=== PATIENT | female | born 1950 | race Two or more races ===

== ENCOUNTER 2019-01-18 14:05 | Emergency (ER) | payer OTHER ==
[~2019-01-18] VITALS: Ht 162.6 cm; Wt 74.8 kg
[2019-01-18 14:15] VITALS: Ht 162.6 cm; Wt 74.8 kg
[2019-01-18] MEDS ORDERED: ATOR10TA65 PO (15:37)
[2019-01-18] MEDS ORDERED: METF-849 PO (15:37)
[2019-01-18] MEDS ORDERED: LOSA50TA14 PO (15:37)
[2019-01-18 15:56] VITALS: BP 175/77; PULSE 97; RESP 16
--- NOTE | 2019-01-18 18:31 | ERD ---
ER Documentation Chief Complaint Chief Complaint medication refill HPI This is a 68-year-old woman with history of hypertension brought in by her son for medication refill, she has not used her medications including losartan x1 month. She denies headache or blurry vision, no chest pain or shortness of breath, no paresis or paresthesias no difficulty ambulating. ROS All systems reviewed and are negative except as per history of present illness. Medications Home Meds Active Scripts Metformin* (Glucophage*) 500 Mg Tab, 500 MG PO BID, #60 TAB Prov:TOM SMALL MD 01/18/19 Atorvastatin Calcium (Atorvastatin Calcium) 10 Mg Tablet, 10 MG PO DAILY, #30 TAB Prov:TOM SMALL MD 01/18/19 Losartan Potassium* (Losartan Potassium*) 50 Mg Tablet, 50 MG PO DAILY, #30 TAB Prov:TOM SMALL MD 01/18/19 Allergies Allergies: Coded Allergies: No Known Allergy (Unverified , 01/18/19) PMhx/Soc Hypertension, hypercholesterolemia Hx Alcohol Use: No Hx Substance Use: No Hx Tobacco Use: No FmHx Family History: No diabetes Physical Exam Vitals Vital Signs Date Temp Pulse Resp B/P (MAP) Pulse Ox O2 O2 Flow FiO2 Time Delivery Rate 01/18/19 98.3 97 16 175/77 97 Room Air 15:56 (109) 01/18/19 98.5 105 18 165/78 98 14:15 (107) Physical Exam GENERAL: Well-developed, well-nourished, well-hydrated, in no apparent distress, looks nontoxic in appearance HEENT: Moist mucous membranes, pink conjunctiva, no cervical spine tenderness or step-off deformities, no goiter, no jaundice or icterus, extraocular movements intact without pain. No submandibular induration, and no pharyngeal erythema NEURO: Alert and oriented 3, mild resting tremor to the hands bilaterally, cranial nerves II through XII intact bilaterally, pupils equal round reactive to light, no focal deficits or facial asymmetry CARDIAC: Regular rate and rhythm, no murmurs rubs or gallops LUNGS: Clear bilaterally no wheezing crackles or stridor ABDOMEN: Soft nontender, no guarding, no rigidity, no rebound, no psoas sign no obturator sign. Normoactive bowel sounds SKIN: Warm and dry to touch, no abrasions, contusions, or hematomas, no lacerations, no ecchymosis, no target lesions, and without ulcers EXTREMITIES: No clubbing cyanosis or edema, calves are bilaterally symmetrical, no Homans sign, no popliteal cord sign. Distal pulses equal and bilateral PSYCH: Normal affect without agitation or irritability Procedures/MDM I agreed to refill her prescription for losartan, metformin, atorvastatin Patient initially presented hypertensive although after waiting in the ER and reassurance by me her blood pressure improved. I agreed to fill her prescriptions until she can follow-up with her PMD. Patient has no complaints of vision loss but I recommend that she follow-up with professional athletes coach for outpatient funduscopic examination and vision testing. Differential diagnoses considered, included but not limited to acute coronary syndrome, pulmonary embolism, aortic dissection, abdominal aortic aneurysm, sepsis, stroke, meningitis, encephalitis, pneumonia, appendicitis, cholecystitis, bowel obstruction, pyelonephritis, nephrolithiasis, cystitis, as well as metabolic, hematologic, and electrolyte abnormalities. As well as abscess, cellulitis, fractures, and dislocations. Patient feels much better at this time, and vital signs are normal, symptoms have improved. I did give strict instructions to return to the ED if symptoms continue or worsen, patient will otherwise follow-up with primary care physician. Patient understood instructions and agreed to plan. Disclaimer: Inadvertent spelling and grammatical errors are likely due to EHR/dictation software use and do not reflect on the overall quality of patient care. Also, please note that the electronic time recorded on this note does not necessarily reflect the actual time of the patient encounter. Departure Diagnosis: Primary Impression: Encounter for medication refill Additional Impression: Hypertension Hypertension type: essential hypertension Qualified Codes: I10 - Essential (primary) hypertension Condition: Good Patient Instructions: Hypertension, Established TOM SMALL MD January 18, 2019 18:31
== END 2019-01-18 15:59 | disposition home or self-care (01) ==
LOC: FTE 14:05
DX: Z76.0 Encounter for issue of repeat prescription (principal); I10 Essential (primary) hypertension
CPT/HCPCS: 99281

== ENCOUNTER 2019-02-22 12:19 | Emergency (ER) | payer OTHER ==
[~2019-02-22] VITALS: Ht 162.6 cm; Wt 74.3 kg
[~2019-02-22 12:19] MED LIST: ATOR10TA65 PO; LOSA50TA14 PO; METF-849 PO
[2019-02-22 12:22] VITALS: BP 174/86; PULSE 91; RESP 18; Ht 162.6 cm; Wt 74.3 kg
[2019-02-22] MEDS ORDERED: LOSA50TA14 PO (12:35)
[2019-02-22] MEDS ORDERED: ATOR10TA65 PO (12:35)
--- NOTE | 2019-02-22 12:46 | ERD ---
ER Documentation Chief Complaint Chief Complaint requesting med refill HPI 68-year-old female presenting with medication refill request. Patient is requesting atorvastatin 10 mg daily and losartan 50 mg daily. Patient states she was unable to be seen by her primary doctor. She is been without her medication for the last 2 days. Denies other medical problems. NKDA. Denies chest pain or shortness of breath. Denies headache or dizziness. Denies vomiting. ROS All systems reviewed and are negative except as per history of present illness. Medications Home Meds Active Scripts Losartan Potassium* (Losartan Potassium*) 50 Mg Tablet, 50 MG PO DAILY, #30 TAB Prov:PAXTON BAZAN PA-C 02/22/19 Atorvastatin Calcium (Atorvastatin Calcium) 10 Mg Tablet, 10 MG PO QHS, #30 TAB Prov:PAXTON BAZAN PA-C 02/22/19 Metformin* (Glucophage*) 500 Mg Tab, 500 MG PO BID, #60 TAB Prov:TOM SMALL MD 01/18/19 Atorvastatin Calcium (Atorvastatin Calcium) 10 Mg Tablet, 10 MG PO DAILY, #30 TAB Prov:TOM SMALL MD 01/18/19 Losartan Potassium* (Losartan Potassium*) 50 Mg Tablet, 50 MG PO DAILY, #30 TAB Prov:TOM SMALL MD 01/18/19 Allergies Allergies: Coded Allergies: No Known Allergy (Unverified , 01/18/19) PMhx/Soc Hx Alcohol Use: No Hx Substance Use: No Hx Tobacco Use: No Smoking Status: Never smoker FmHx Family History: No diabetes, No coronary disease, No other Physical Exam Vitals Vital Signs Date Temp Pulse Resp B/P (MAP) Pulse Ox O2 O2 Flow FiO2 Time Delivery Rate 02/22/19 98.8 91 18 174/86 98 12:22 (115) Physical Exam GENERAL: The patient is well-appearing, well-nourished, in no acute distress HEENT: Atraumatic. Conjunctivae are pink. Pupils equal, round, and reactive to light. There is no scleral icterus. Tympanic membranes clear bilaterally. Oropharynx clear. CHEST: Clear to auscultation bilaterally. There are no rales, wheezes or rhonchi. HEART: Regular rate and rhythm. No murmurs, clicks, rubs or gallops. NEUROLOGIC: Alert and oriented. Cranial nerves II through XII intact. Motor strength in all 4 extremities with 5 out of 5 strength. Sensation grossly intact. Normal speech and gait. SKIN: There is no apparent rash or petechiae. The skin is warm and dry. Procedures/MDM MDM: 68-year-old female presenting for medication refill. I have low suspicion for cardiac or pulmonary emergency. I have low suspicion for endorgan failure due to hypertension. Patient is within normal limits. Patient is discharged with strict ER precautions and told to follow-up with primary care within 1 to 2 days for close evaluation. All questions answered at discharge Departure Diagnosis: Primary Impression: Encounter for medication refill Condition: Stable Patient Instructions: Taking Medicine Safely Referrals: [facility] YOU HAVE RECEIVED A MEDICAL SCREENING EXAM AND THE RESULTS INDICATE THAT YOU DO NOT HAVE A CONDITION THAT REQUIRES URGENT TREATMENT IN THE EMERGENCY DEPARTMENT. FURTHER EVALUATION AND TREATMENT OF YOUR CONDITION CAN WAIT UNTIL YOU ARE SEEN IN YOUR DOCTORS OFFICE WITHIN THE NEXT 1-2 DAYS. IT IS YOUR RESPONSIBILITY TO MAKE AN APPOINTMENT FOR FOLOW-UP CARE. IF YOU HAVE A PRIMARY DOCTOR --you should call your primary doctor and schedule an appointment IF YOU DO NOT HAVE A PRIMARY DOCTOR YOU CAN CALL OUR PHYSICIAN REFERRAL HOTLINE AT IF YOU CAN NOT AFFORD TO SEE A PHYSICIAN YOU CAN CHOSE FROM THE FOLLOWING FORMERLY [facility] [address] [facility] [facility] [address] [facility] [facility] [address] [facility] [address] [facility]. [facility] [address] [facility] [facility]. [address] Additional Instructions: FOLLOW UP WITH YOUR PRIMARY CARE PHYSICIAN TOMORROW.Return to this facility if you are not improving as expected. PAXTON BAZAN PA-C Feb 22, 2019 12:46
== END 2019-02-22 13:16 | disposition home or self-care (01) ==
LOC: FTE 12:19
DX: Z76.0 Encounter for issue of repeat prescription (principal); Z79.84 Long term (current) use of oral hypoglycemic drugs
CPT/HCPCS: 99281